=== PATIENT | female | born 1980 | race Caucasian/White ===

== ENCOUNTER 2016-12-26 22:26 | Inpatient (IN) | payer MEDICAID ==
[~2016-12-26 22:26] MED LIST: BACT800T5 PO; DEPA500T3 PO; HYDR50 PO; TRAZ100 PO; ZOLO50TA PO
--- NOTE | 2016-12-26 23:05 | PD ---
HPI Chief Complaint Contractions Date Seen: December 26, 2016 Time Seen: 23:00 Travel History International Travel<30 Days: No Contact w/Intl Traveler<30Days: No Known Affected Area: No History of Present Illness HPI Patient is a 36-year-old who is at 37 weeks gestation by an unsure due date of January 16. She saw Dr. sheehan by mouth for 2 visits but then never return for continued care she is not had an ultrasound in the past. Patient has had a previous section 2003 for a breech presentation. Para: 1 : 3 Miscarriage: 1 History Past Medical History Medical History: Denies Significant Hx Obstetric History Obstetric History section in 2003 LEEP D&C Family History Family History: Negative Social History Alcohol Use: No Tobacco Use: No Substance Abuse: No Allergies-Medications (Allergen,Severity, Reaction): Coded Allergies: Adhesives (Verified Allergy, Mild, 11/23/15) Home Meds Active Scripts Sulfamethoxazole-Trimethoprim DS (Bactrim DS)1 Tab Tab1 Tab PO BID #6 TAB Prov:Dayana Samson MD 11/24/15 Sulfamethoxazole-Trimethoprim DS (Bactrim DS)1 Tab Tab1 Tab PO BID 7 Days Prov:Rafael Marroquin MD 11/16/15 Reported Medications Hydroxyzine Pamoate (Vistaril)50 Mg Cap50 Mg PO Q6H PRN (ANXIETY) 05/21/13 Sertraline HCl (Zoloft)50 Mg [id number] Mg PO DAILY 05/20/13 Trazodone HCl 100 Mg [id number] Mg PO HS #45 TAB 05/20/13 Divalproex ER 500 mg (Depakote ER 500 mg)500 Mg [id number] Mg PO BID 05/12/13 Review of Systems Except as stated in HPI: all other systems reviewed are Neg Physical Exam Narrative GENERAL: Well-nourished, well-developed patient. SKIN: Warm and dry. HEAD: Normocephalic and atraumatic. EYES: No scleral icterus. No injection or drainage. ENT: No nasal drainage noted. Mucous membranes pink. Airway patent. NECK: Supple, trachea midline. No JVD. CARDIOVASCULAR: Regular rate and rhythm without murmurs, gallops, or rubs. RESPIRATORY: Breath sounds equal bilaterally. No accessory muscle use. BREASTS: Bilateral exam showed no masses , no retractions, no nipple discharge. ABDOMEN/GI: Abdomen soft, non-tender, bowel sounds present, no rebound, no guarding Gravid to [37-] weeks size Fundal Height: [-] GENITOURINARY: External Genitalia: intact and normal in appearance BUS glands: [-Normal] Cervix: [-] Dilatation: [8-] Effacement: [-80] Station: [-2] Presentation: [-Vertex] Membranes: [intact or ruptured] intact Uterine Contractions: [-] Every 5 minutes FHT's: Category: [1-] Baseline: [-140] Reactive: [Moderate-] Variability: [-] Moderate Decels: [-Absent] EXTREMITIES: No cyanosis or edema. BACK: Nontender without obvious deformity. No CVA tenderness. NEUROLOGICAL: Awake and alert. Motor and sensory grossly within normal limits. Five out of 5 muscle strength in all muscle groups. Normal speech. Data Data Vital Signs Reviewed: Yes MDM Plan 36-year-old previous section unknown incision type however it is most likely a low transverse as it was performed for a breech presentation at term Discussed with patient the pros and cons of repeat section versus vaginal delivery as she is a already 8 cm. Patient understands 1% risk of uterine rupture with a previous section Diagnosis Diagnosis: Primary Impression: 37 weeks gestation of Additional Impressions: No care in current Mother's group B Streptococcus colonization status unknown History of substance abuse Stephanie Benavides MD December 26, 2016 23:05
[2016-12-26] MEDS ORDERED: LACTATED RINGER'S 1000 ML INJ 1,000 ML IV PRN (23:07)
[2016-12-26] MEDS ORDERED: LACTATED RINGER'S 1000 ML INJ 1,000 ML IV SCH (23:07)
[2016-12-26] MEDS ORDERED: MINERAL OIL 10 ML VIAL TOPICAL PRN (23:15)
[2016-12-26] MEDS ORDERED: LIDOCAINE HCL 1% 50 ML VIAL I-DERMAL PRN (23:15)
[2016-12-26] MEDS ORDERED: SODIUM CHLORID 0.9% 500 ML INJ 500 ML IV PRN (23:15)
[2016-12-26] MEDS ORDERED: LIDOCAINE HCL 1% 50 ML VIAL INFIL PRN (23:15)
[2016-12-26] MEDS ORDERED: OXYTOCIN 30 UNITS-500ML PREMIX 500 ML IV ONE (23:15)
[2016-12-26] MEDS ORDERED: SODIUM CHLOR 0.9% 1000 ML INJ 1,000 ML IV PRN (23:27)
[2016-12-26 23:35] LABS: AUTOMATED NEUTROPHIL # 13.1 TH/MM3 (1.8-7.7); BASOPHIL # 0.1 TH/MM3 (0-0.2); BASOPHIL % 0.6 % (0.0-2.0); EOSINOPHIL # 0.2 TH/MM3 (0-0.4); EOSINOPHIL % 1.2 % (0.0-4.0); HEMATOCRIT 37.8 % (35.0-46.0); LYMPH % 14.7 % (9.0-44.0); LYMPHOCYTE # 2.4 TH/MM3 (1.0-4.8); MEAN CELL VOLUME 75.8 FL (80.0-100.0); MEAN CORPUSCULAR HEMOGLOBIN 24.8 PG (27.0-34.0); MEAN CORPUSCULAR HGB CONC 32.8 % (32.0-36.0); MONO % 4.8 % (0.0-8.0); NEUT % 78.7 % (16.0-70.0); PLATELET COUNT 193 TH/MM3 (150-450); RED BLOOD COUNT 4.99 MIL/MM3 (4.00-5.30); RED CELL DISTRIBUTION WIDTH 14.9 % (11.6-17.2); WHITE BLOOD COUNT 16.6 TH/MM3 (4.0-11.0)
[2016-12-26 23:37] LABS: HEMO FLAGS AUTO DIFF
[2016-12-26 23:45] VITALS: RESP 18
[2016-12-27] VITALS (162 sets, daily range): BP systolic 117–162; BP diastolic 66–98; PULSE 76–129; RESP 17–19; TEMP 97.8–98.5; O2SAT 91–100
[2016-12-27 00:08] LABS: PLATELET ESTIMATE SMEAR NORMAL (NORMAL); PLATELET MORPHOLOGY NORMAL (NORMAL); SCAN/DIFF AUTO DIFF CONFIRMED
[2016-12-27] MEDS ORDERED: fentaNYL 2MCG-BUPIV 0.125% INJ 100 ML ONE (00:08)
--- NOTE | 2016-12-27 02:34 | HHI.PR ---
MUD WORKER Note Note Patient s/p epidural. Cervix 8/c/-2, arom clear FHR 140, reactive, mod variability,category 1 tracing. Stephanie Benavides MD December 27, 2016 02:34
[2016-12-27 02:54] LABS: BACTERIA, URINE MOD /hpf; BLOOD, URINE MOD (NEG); COMMENT (UR) CULTURE INDICATED; CULTURE IF INDICATED CULTURE INDICATED; GLUCOSE,URINE NEG (NEG); KETONE, URINE NEG (NEG); MUCUS URINE FEW /lpf (OCC); NITRITE,URINE NEG (NEG); PH, URINE 7.5 (5.0-8.5); SQUAMOUS EPITHELIAL CELL URINE 2 /hpf (0-5); TRANSITIONAL EPI CELLS, URINE <1 /hpf; URIC ACID CRYSTALS, URINE FEW /hpf; URINE COLOR YELLOW (YELLW/STRAW)
[2016-12-27] MEDS ORDERED: ONDANSETRON HCL 4 MG/2 ML VIAL ONE ×2 (02:54→04:54)
[2016-12-27] MEDS: CITRIC ACID-SODIUM CITRATE LIQ 30 ML UDC PO SCH ×2 (03:13→03:58)
[2016-12-27] MEDS ORDERED: MAGNESIUM SULFATE 40 GM PREMIX 1,000 ML ONE (03:48)
--- NOTE | 2016-12-27 03:53 | PD.LABORPN ---
Subjective Subjective Patient complains of headache and pelvic pressure Objective Vital Signs Vital Signs Date Time Temp Pulse Resp B/P Pulse Ox O2 Delivery O2 Flow Rate FiO2 12/27/16 03:20 18 12/27/16 02:49 18 12/27/16 02:49 98.5 12/27/16 02:45 18 12/27/16 02:45 111 148/87 12/27/16 02:30 87 151/92 12/27/16 02:26 18 12/27/16 02:22 99 154/85 12/27/16 02:15 100 162/89 12/27/16 02:00 92 152/83 12/27/16 01:59 18 12/27/16 01:26 18 12/27/16 01:00 76 12/27/16 00:59 155/97 12/27/16 00:33 18 12/27/16 00:15 97.8 12/27/16 00:15 18 12/26/16 23:45 18 Objective Pelvic Exam: Cervix: [-] Dilatation: [9-] Effacement: [90-] Station: [-2-] Presentation: [Vertex-] Membranes: Ruptured Uterine Contractions: [-] Every 5 minutes FHT's: Category: [-1] Baseline: [140-] Reactive: [-Moderate] Variability: [Moderate-] Decels: [-Variable to 120] Assessment/Plan Assessment and Plan 36-year-old with increasing blood pressures and now with headache, suspect preeclampsia and will start patient on magnesium sulfate with a 4 g bolus and then 2 g an hour Failure to progress cervix is been unchanged over the past 3 hours in the patient with a prior history of a section plan to repeat section Stephanie Benavides MD December 27, 2016 03:53
[2016-12-27] MEDS ORDERED: ceFAZolin 2 GM PREMIX 50 ML IV SCH (04:00)
[2016-12-27] MEDS ORDERED: OXYTOCIN 10 UNIT/ML AMP ONE (04:10)
[2016-12-27] MEDS ORDERED: ceFAZolin INJ 1,000 MG VIAL ONE (04:11)
--- NOTE | 2016-12-27 04:53 | PD.OB.DELI ---
Procedure Note Section Procedure Pre Op Diagnosis: (1) History of substance abuse (2) 37 weeks gestation of (3) Mother's group B Streptococcus colonization status unknown (4) No care in current Post Op Diagnosis: Performed by Stephanie Benavides Procedure: Repeat Low Transverse Sec Indication for delivery: Desired elective repeat , Other (failure to descend) Confirmed correct: Patient, Procedure, Site, Time-out taken Anesthesia: Epidural Medication prior to procedure: Antacids, Antibiotics, IV Urinary catheter: Inserted using sterile technique Sterile preparation: Duraprep Position: Supine with wedge to left side Operative Features Skin Incision: Pfannenstiel Uterine Incision: Low transverse w/knife / blunt ext Membranes Ruptured: Previously Presentation: Occiput anterior Time of : 04:32 Delivery of : Uneventful : Female One Minute : 8 Five Minute : 9 Weight: 3150gms, 6#15oz Status of infant: Viable Placenta delivered: Intact Estimated blood loss: 600cc Procedure tolerated: Well Maternal Condition: Stable Condition: Stable Stephanie Benavides MD December 27, 2016 04:53
[2016-12-27] MEDS ORDERED: MORPHINE SULFATE PF 5 MG/10 ML VIAL ONE (04:54)
[2016-12-27] MEDS ORDERED: BENZOCAINE 20% TOPICAL SPRAY 60 ML CAN TOPICAL PRN (05:00)
[2016-12-27] MEDS ORDERED: ACETAMINOPHEN 325 MG TAB PO PRN (05:00)
[2016-12-27] MEDS ORDERED: WITCH HAZEL 50%/GLYCERIN 12.5% 40 PAD JAR TOPICAL PRN (05:00)
[2016-12-27] MEDS ORDERED: ALUMINUM/MAGNESIUM/SIMETH 30 ML CUP PO PRN (05:00)
[2016-12-27] MEDS ORDERED: SODIUM CHLORIDE 0.9% FLUSH 10 ML FLUSH IV FLUSH PRN (05:00)
[2016-12-27] MEDS ORDERED: ZOLPIDEM TARTRATE 5 MG TAB PO PRN (05:00)
[2016-12-27] MEDS ORDERED: ONDANSETRON ODT 4 MG TAB PO PRN (05:00)
[2016-12-27 06:21] LABS: BICARBONATE 22.5 MEQ/L (21.0-32.0); POTASSIUM 4.1 MEQ/L (3.5-5.1)
[2016-12-27 06:33] LABS: AMPHETAMINE, URINE POS (NEG); BARBITURATES, URINE NEG (NEG); COCAINE, URINE NEG (NEG)
[2016-12-27 06:34] LABS: RUBELLA IGG ANTIBODY GREATER THAN 500.0 IU/mL (10.0-500.0); RUBELLA STATUS IMMUNE (IMMUNE)
[2016-12-27] MEDS ORDERED: SODIUM CHLORIDE 0.9% FLUSH 10 ML FLUSH IV FLUSH SCH (09:00)
--- NOTE | 2016-12-27 09:02 | MP ---
cc: SIERRA NOWAK M.D. DATE OF SURGERY 12/27/2016 PREOPERATIVE DIAGNOSES 1. History of substance abuse. 2. 37 weeks gestation. 3. No care. 4. GBS unknown. 5. Previous section. 6. Failure to descend. POSTOPERATIVE DIAGNOSES 1. History of substance abuse. 2. 37 weeks gestation. 3. No care. 4. GBS unknown. 5. Previous section. 6. Failure to descend. PROCEDURE Repeat low transverse section without extension. ESTIMATED BLOOD LOSS 600 cc ANESTHETIC Epidural. MEDICATIONS Ancef given 2 grams preoperatively. DRAINS Lundy to gravity. COUNTS Correct x 3. FINDINGS 1. Normal uterus, tubes, ovaries. 2. Clear amniotic fluid. 3. Infant female, vertex presentation. Weight was 6 pounds, 15 ounces at 3150 grams, born at 04:32. Apgars were 8 and 9. DESCRIPTION OF PROCEDURE The patient was taken back to the operating room, prepped and draped in the usual sterile fashion, placed in dorsal supine position with a wedge to her left side. After adequate anesthetic was administered, a Pfannenstiel incision was made through her old scar and taken down to the fascia. The fascia was nicked in the midline and extended bilaterally, then taken off the rectus muscles. The muscles were divided in the midline. The anterior peritoneum was entered. The vesicouterine peritoneum was taken down and a transverse hysterotomy incision was made, bluntly extended bilaterally. The infant's head was delivered to the operative field, the rest of the body was delivered and handed off to the resuscitation team after a 45-second cord clamping delay. The placenta was delivered intact spontaneously and the endometrial cavity was curetted with a moistened laparotomy sponge. The hysterotomy incision was repaired using a running locking #1 chromic suture with good hemostasis at repair. The gutters were rendered free of all blood and clot material. The fascia was closed with a #1 PDS in a running fashion. The subcutaneous tissue was made hemostatic with a Bovie. The skin was closed with brodie. The patient tolerated the procedure well. She was taken back to the recovery room good condition. MD COOPER Quiroz/MILE /4:59 AM :54 AM
[2016-12-27 11:50] LABS: RAPID PLASMA REAGIN SCREEN NON-REACTIVE (NON-REACTVE)
[2016-12-27] MEDS ORDERED: DIPHTH/TETANUS/ACEL PERTUSSIS (BOOSTER) 0.5 ML VIAL/PFS IM ONE (16:00)
[2016-12-27] MEDS ORDERED: MEASLES, MUMPS, RUBELLA VACCINE 0.5 ML VIAL SQ ONE (16:00)
[2016-12-27] MEDS ORDERED: LACTATED RINGER'S 1000 ML INJ 1,000 ML IV SCH (18:45)
[2016-12-28] VITALS (15 sets, daily range): BP systolic 110–159; BP diastolic 50–94; PULSE 77–125; RESP 18–20; TEMP 98–99; O2SAT 100
[2016-12-28] MEDS ORDERED: MAGNESIUM SULFATE 40 GM PREMIX 1,000 ML ONE (02:33)
[2016-12-28] MEDS: IBUPROFEN 600 MG TAB PO PRN ×3 (08:52→23:49)
[2016-12-28] MEDS: DOCUSATE SODIUM 50 MG/SENNA 8.6 MG TAB PO PRN ×2 (08:52→21:07)
--- NOTE | 2016-12-28 09:07 | HHI.OB ---
Subjective Post Operative Day: 1 Remarks Postoperative day number 1. AFVSS overnight. Pain well-controlled. Incision not draining. Decreased lochia. Denies dysuria. No breast tenderness. Appetite good. No nausea or vomiting. Endorses flatus. No bowel movement. Ambulating well. Denies calf pain, shortness of breath, or cough. Otherwise, she is doing well this morning and has no other complaints. Objective Vitals/I&O Vital Signs Date Time Temp Pulse Resp B/P Pulse Ox O2 Delivery O2 Flow Rate FiO2 12/28/16 08:35 20 12/28/16 08:35 98.2 12/28/16 08:00 81 125/73 12/28/16 07:00 77 110/54 12/28/16 06:00 82 119/70 12/28/16 05:00 82 112/50 12/28/16 04:00 98.0 86 131/71 12/28/16 04:00 18 12/28/16 03:00 95 128/68 12/28/16 02:00 98 129/76 12/28/16 01:00 102 145/70 12/28/16 00:00 98.2 18 12/28/16 00:00 104 132/70 12/27/16 23:00 96 140/74 12/27/16 22:00 108 139/76 12/27/16 21:30 114 100 12/27/16 21:20 117 100 12/27/16 21:15 121 99 12/27/16 21:10 101 99 12/27/16 21:05 106 100 12/27/16 21:00 107 12/27/16 21:00 109 146/81 99 12/27/16 20:55 115 100 12/27/16 20:50 118 100 12/27/16 20:45 122 100 12/27/16 20:40 113 100 12/27/16 20:35 114 100 12/27/16 20:30 104 100 12/27/16 20:25 112 100 12/27/16 20:20 109 100 12/27/16 20:15 104 100 12/27/16 20:10 114 100 12/27/16 20:05 120 100 12/27/16 20:00 123 12/27/16 20:00 118 155/74 100 12/27/16 19:55 109 100 12/27/16 19:50 95 100 17 19:45 97 100 17 19:40 98 100 17 19:35 95 100 17 19:30 96 100 12/27/16 19:25 95 99 17 19:20 96 98 12/27/16 19:15 93 98 12/27/16 19:10 94 98 12/27/16 19:05 97 98 12/27/16 19:00 115 12/27/16 19:00 106 138/84 100 12/27/16 18:59 18 12/27/16 18:55 98 99 17 18:50 95 99 12/27/16 18:45 94 99 12/27/16 18:40 96 98 12/27/16 18:30 104 98 12/27/16 18:10 98 98 12/27/16 18:05 97 99 12/27/16 18:00 99 139/77 100 12/27/16 18:00 19 12/27/16 18:00 105 12/27/16 17:55 108 99 17 17:50 96 98 17 17:45 103 99 17 17:40 104 12/27/16 17:40 98 17 17:35 115 99 12/27/16 17:30 112 99 17 17:25 111 98 17 17:20 96 98 17 17:15 91 98 12/27/16 17:10 110 99 17 17:05 114 98 17 17:00 112 127/70 99 17 17:00 114 12/27/16 16:53 18 17 16:50 90 98 17 16:00 97 121/70 17 15:10 121 98 17 15:05 95 97 12/27/16 15:00 110 17 15:00 108 117/79 98 17 14:55 106 97 17 14:54 17 12/27/16 14:50 95 97 17 14:45 95 97 17 14:40 92 97 5/4/17 14:35 90 97 17 14:30 105 98 17 14:25 92 97 12/27/16 14:20 91 97 17 14:15 91 97 12/27/16 14:10 90 97 17 14:05 110 98 17 14:00 90 122/66 97 17 14:00 89 12/27/16 13:41 18 17 13:41 18 17 13:40 96 17 13:40 97 17 13:40 97 17 13:40 96 17 13:35 97 17 13:35 90 17 13:35 90 12/27/16 13:35 97 17 13:30 95 17 13:30 92 130/78 17 13:30 95 17 13:30 97 17 13:30 130/78 17 13:30 97 17 13:25 94 97 17 13:25 94 97 17 13:20 93 98 17 13:20 93 98 17 13:15 94 98 12/27/16 13:15 94 98 12/27/16 13:10 95 99 17 13:10 95 99 17 13:05 89 98 17 13:05 89 98 17 13:00 89 137/76 99 17 13:00 94 17 13:00 89 137/76 99 17 13:00 94 17 12:55 91 98 12/27/17 12:55 91 98 17 12:50 90 98 17 12:50 90 98 17 12:45 90 97 17 12:45 90 97 12/27/17 12:40 93 98 17 12:40 93 98 17 12:35 93 98 17 12:35 93 98 17 12:30 93 124/73 98 17 12:30 93 124/73 98 12/27/16 12:30 92 12/27/16 12:27 19 12/27/16 12:20 102 97 12/27/16 12:15 100 91 12/27/16 12:05 112 98 12/27/16 12:00 98 12/27/16 12:00 95 136/68 96 12/27/16 11:55 95 96 12/27/16 11:50 97 97 12/27/16 11:45 114 98 12/27/16 11:40 97 97 12/27/16 11:35 99 97 12/27/16 11:30 104 144/77 97 12/27/16 11:30 108 12/27/16 11:25 103 96 12/27/16 11:20 99 96 12/27/16 11:15 18 12/27/16 11:15 106 97 12/27/16 11:10 99 96 12/27/16 11:05 98 96 12/27/16 11:00 18 12/27/16 11:00 98 12/27/16 11:00 103 139/76 96 12/27/16 10:55 104 97 12/27/16 10:50 98 96 12/27/16 10:45 100 96 12/27/16 10:40 100 96 12/27/16 10:35 115 98 12/27/16 10:30 102 139/74 12/27/16 10:00 100 152/77 12/27/16 09:30 98 153/76 12/27/16 09:15 129 99 12/27/16 09:10 79 91 12/27/16 09:05 100 100 Result Diagram: 12/26/16 2320 12/27/16 0530 Objective Remarks GENERAL: Well-nourished, well-developed patient. CARDIOVASCULAR: Regular rate and rhythm without murmurs, gallops, or rubs. RESPIRATORY: Breath sounds equal bilaterally. No accessory muscle use. ABDOMEN/GI: Abdomen soft, non-tender, bowel sounds present. Incision: Clean, dry and intact. Fundus: Firm, non-tender at umbilicus. GENITOURINARY: Light to moderate bleeding. EXTREMITIES: No cyanosis or edema, non-tender, without signs of DVT. Medications and IVs Current Medications Medications (Trade) Dose Ordered Sig/Olman Route Start Time Stop Time Status Last Admin (NS Flush) 2 ml UNSCH PRN IV FLUSH 12/27/16 05:00 12/28/16 08:51 (Tylenol) 650 mg Q4H PRN PO 12/27/16 05:00 (Motrin) 600 mg Q6H PRN PO 12/27/16 05:00 12/28/16 08:52 (Americaine 20% Top Spr) 1 spray Q4H PRN TOPICAL 12/27/16 05:00 (Tucks Pads) 1 applic QID PRN TOPICAL 12/27/16 05:00 12/27/16 16:27 (Bernadette-Colace) 2 tab Q12H PRN PO 12/27/16 05:00 12/28/16 08:52 (Ambien) 5 mg HS PRN PO 12/27/16 05:00 (Mag-Al Plus Susp Liq) 15 ml Q8H PRN PO 12/27/16 05:00 Ondansetron HCl 4 mg 4 mg Q6H PRN PO 12/27/16 05:00 (Lr 1000 ml Inj) 1,000 ml @ 75 mls/hr [id number] IV 12/27/16 18:45 12/27/16 18:57 Assessment/Plan Assessment and Plan 36y/o female who is POD#1 s/p CXN. -Continue routine care. -Percocet and Motrin PRN pain. -Encouraged OOB. Advised pelvic rest for 6 wks. Will need a f/u appt. in 1 wk for incision check. -Re: ctrl, she is undecided -D/c in 1-2 more days. dw OB attending Brandon Collado MD R1 December 28, 2016 09:07
[2016-12-28] MEDS ORDERED: oxyCODONE/ACETAMINOPHEN 5 MG/325 MG TAB PO PRN (12:15)
[2016-12-28] MEDS: oxyCODONE/ACETAMINOPHEN 5 MG/325 MG TAB PO PRN ×3 (12:33→21:07)
[2016-12-28] MEDS: NIFEdipine 10 MG CAP PO SCH ×2 (16:05→22:04)
[2016-12-29] MEDS: oxyCODONE/ACETAMINOPHEN 5 MG/325 MG TAB PO PRN (02:28)
[2016-12-29 03:20] VITALS: BP 136/79; PULSE 106; RESP 18; TEMP 98.1
[2016-12-29] MEDS: IBUPROFEN 600 MG TAB PO PRN (05:59)
[2016-12-29] MEDS: NIFEdipine 10 MG CAP PO SCH (05:59)
[2016-12-29 08:40] VITALS: BP 147/79; PULSE 97; RESP 20; TEMP 98.3
[2016-12-29] MEDS ORDERED: CEPHALEXIN MONOHYDRATE 500 MG CAP PO SCH (09:00)
--- NOTE | 2016-12-29 09:07 | HHI.OB ---
Subjective Post Operative Day: 2 Remarks 36 yo who is POD 2 from CS 12/27 at 0432.Patient with improved BP overnight; SBP in 130's. Pain well-controlled. Decreased lochia. Denies dysuria. No breast tenderness. Appetite good. Patient passing gas normally. Ambulating well. No shortness of breath or leg swelling. Patient states that she still needs to establish follow-up at this time for post- care. (Laron Rivero MD R2) Objective Vitals/I&O Vital Signs Date Time Temp Pulse Resp B/P Pulse Ox O2 Delivery O2 Flow Rate FiO2 12/29/16 03:20 98.1 106 18 136/79 12/28/16 23:50 98.1 12/28/16 23:50 106 18 157/89 12/28/16 20:00 92 148/85 12/28/16 20:00 98.5 18 100 12/28/16 17:14 103 20 155/94 12/28/16 15:18 99.0 125 18 159/87 12/28/16 12:13 98.5 115 18 140/90 (Laron Rivero MD R2) Result Diagram: 12/26/16 2320 12/27/16 0530 Objective Remarks GENERAL: Well-nourished, well-developed patient. CARDIOVASCULAR: Regular rate and rhythm without murmurs, gallops, or rubs. RESPIRATORY: Breath sounds equal bilaterally. No accessory muscle use. ABDOMEN/GI: Abdomen soft, non-tender, bowel sounds present. Incision: No concerns for drainage or infection Fundus: Firm, non-tender at umbilicus. GENITOURINARY: Light to moderate bleeding. EXTREMITIES: No cyanosis or edema, non-tender, without signs of DVT. Medications and IVs Current Medications Medications (Trade) Dose Ordered Sig/Olman Route Start Time Stop Time Status Last Admin (NS Flush) 2 ml UNSCH PRN IV FLUSH 12/27/16 05:00 12/28/16 08:51 (Tylenol) 650 mg Q4H PRN PO 12/27/16 05:00 (Motrin) 600 mg Q6H PRN PO 12/27/16 05:00 12/29/16 05:59 (Americaine 20% Top Spr) 1 spray Q4H PRN TOPICAL 12/27/16 05:00 (Tucks Pads) 1 applic QID PRN TOPICAL 12/27/16 05:00 12/27/16 16:27 (Bernadette-Colace) 2 tab Q12H PRN PO 12/27/16 05:00 12/28/16 21:07 (Ambien) 5 mg HS PRN PO 12/27/16 05:00 (Mag-Al Plus Susp Liq) 15 ml Q8H PRN PO 12/27/16 05:00 12/29/16 02:30 Ondansetron HCl 4 mg 4 mg Q6H PRN PO 12/27/16 05:00 (Lr 1000 ml Inj) 1,000 ml @ 75 mls/hr [id number] IV 12/27/16 18:45 12/27/16 18:57 (Percocet 5-325 Mg) 1 tab Q4H PRN PO 12/28/16 12:15 (Percocet 5-325 Mg) 2 tab Q4H PRN PO 12/28/16 12:15 12/29/16 02:28 (Procardia) 10 mg Q8HR PO 12/28/16 16:00 12/29/16 05:59 (Keflex) 500 mg BID PO 12/29/16 09:00 (Laron Rivero MD R2) Assessment/Plan Assessment and Plan 36y/o female who is POD#2 s/p CXN. -Continue routine care. -Percocet and Motrin PRN pain. -Encouraged OOB. Advised pelvic rest for 6 wks. Will need a f/u appt. in 1 wk for incision check. -Re: ctrl, she is undecided -D/c today UTI Impression: Gram - shayy on urine culture -Will treat with Macrobid 100mg BID Maternal substance abuse -DCF notified (Laron Rivero MD R2) Collaborating MD Comments Agree with management plan for discharge. (Stephanie Benavides MD) Laron Rivero MD R2 December 29, 2016 09:07 Stephanie Benavides MD December 29, 2016 09:20
--- NOTE | 2016-12-29 09:08 | HHI.DCPOC ---
Discharge Care Plan Diagnosis: (1) care following delivery Report Symptoms to Your Doctor -Temperate above 100.5 degrees -Redness, of incision or excessive or foul smelling drainage -Unusual pain or calf pain -Increased vaginal bleeding -Painful or difficulty urinating -Feelings of extreme sadness or anxiety after 2 weeks Goals to Promote Your Health * To prevent worsening of your condition and complications * To maintain your health at the optimal level Directions to Meet Your Goals Take your medications as prescribed Follow your dietary instruction Follow activity as directed Ensure plenty of rest for recovery Drink fluids for hydration Keep your appointments as scheduled Take your immunizations and boosters as scheduled If your symptoms worsen call your PCP, if no PCP go to Urgent Care Center or Emergency Room Smoking is Dangerous to Your Health. Avoid second hand smoke Call the 24-hour crisis hotline for domestic abuse at Laron Rivero MD R2 December 29, 2016 09:08
[2016-12-29] MEDS ORDERED: NITR1CAP36 PO (09:11)
[2016-12-29] MEDS ORDERED: NIFE10 PO (09:11)
[2016-12-29] MEDS ORDERED: IBUP-232 PO (09:11)
[2016-12-29] MEDS ORDERED: SENN1TAB PO (09:11)
[2016-12-29] MEDS ORDERED: OXYC1TAB63 PO (09:11)
== END 2016-12-29 13:18 | disposition home or self-care (01) | DRG 765 ==
LOC: HOBED 22:26 → H2EB 23:14 → H2EA 12-27 05:51 → H1EA 12-28 11:56
PROVIDERS: ADMIT Obstetrics & Gynecology Obstetrics; ATTEND Obstetrics & Gynecology Obstetrics
PROC: 10D00Z1 Extraction of Products of Conception, Low, Open Approach (ICD-10-PCS; principal; 2016-12-27)
DX: O34.211 Maternal care for low transverse scar from previous cesarean delivery (principal); O75.3 Other infection during labor; Z37.0 Single live birth; Z3A.37 37 weeks gestation of pregnancy; B96.20 Unspecified Escherichia coli [E. coli] as the cause of diseases classified elsewhere; O14.94 Unspecified pre-eclampsia, complicating childbirth; O32.4XX0 Maternal care for high head at term, not applicable or unspecified
CPT/HCPCS: 59025; 80048; 80074; 80307; 81001; 85025; 86592; 86703; 86762; 86850; 86900; 86901; 87077; 87086; 87186; 90715; 99285; J0690; J2274; J2405; J2590; J3475; J7120

== ENCOUNTER → 2017-12-09 | Outpatient (CLI) | payer MEDICAID ==
[~2017-12-09] MED LIST changes: -BACT800T5 PO; +IBUP-232 PO; +NIFE10 PO; +NITR1CAP36 PO; +OXYC1TAB63 PO; +SENN1TAB PO
== END ==
LOC: HPND 11:08
PROVIDERS: ATTEND Obstetrics & Gynecology
DX: O34.211 Maternal care for low transverse scar from previous cesarean delivery (principal); O98.513 Other viral diseases complicating pregnancy, third trimester; O09.523 Supervision of elderly multigravida, third trimester; O99.333 Smoking (tobacco) complicating pregnancy, third trimester
CPT/HCPCS: 76811

== ENCOUNTER 2017-12-28 19:35 | Inpatient (IN) | payer MEDICAID ==
[~2017-12-28] VITALS: Ht 152.4 cm; Wt 79.0 kg
[2017-12-28] VITALS (53 sets, daily range): BP systolic 129–180; BP diastolic 50–103; PULSE 85–122; RESP 15; TEMP 98.1; O2SAT 97–100
[2017-12-28] MEDS ORDERED: LACTATED RINGER'S 1000 ML INJ 1,000 ML IV PRN (20:08)
[2017-12-28] MEDS: LACTATED RINGER'S 1000 ML INJ 1,000 ML IV SCH ×2 (20:13→21:37)
[2017-12-28] MEDS ORDERED: SODIUM CHLORID 0.9% 500 ML INJ 500 ML IV PRN (20:15)
[2017-12-28] MEDS ORDERED: LIDOCAINE HCL 1% 50 ML VIAL I-DERMAL PRN (20:15)
[2017-12-28] MEDS ORDERED: OXYTOCIN 30 UNITS-500ML PREMIX 500 ML IV ONE (20:15)
[2017-12-28] MEDS ORDERED: ONDANSETRON HCL 4 MG/2 ML VIAL IV PUSH PRN (20:15)
[2017-12-28] MEDS ORDERED: MINERAL OIL 10 ML VIAL TOPICAL PRN (20:15)
[2017-12-28] MEDS ORDERED: LIDOCAINE HCL 1% 50 ML VIAL INFIL PRN (20:15)
[2017-12-28] MEDS ORDERED: CITRIC ACID-SODIUM CITRATE LIQ 30 ML UDC PO SCH (20:15)
[2017-12-28] MEDS ORDERED: SODIUM CHLOR 0.9% 1000 ML INJ 1,000 ML IV PRN (20:28)
--- NOTE | 2017-12-28 20:30 | PD ---
HPI Chief Complaint Contractions Date Seen: December 28, 2017 Time Seen: 20:19 Travel History International Travel<30 Days: No Contact w/Intl Traveler<30Days: No Known Affected Area: No History of Present Illness HPI 37-year-old 4 para 2 AB 1 at 38+ weeks gestation based on 32 week ultrasound who presents with contractions. She is uncertain of her water is broken. She reports some bloody vaginal mucus. Her cervix on arrival was 8 cm dilated 100% effaced -2 station. The patient desires a if possible. She has had 2 prior C-sections. The first was for breech the second was 1 year ago for arrest of active labor at 8 cm. I reviewed with the patient the risks benefits and alternatives to trial of labor after 2 C-sections especially emphasizing the increased risk of uterine rupture and she desires trial of labor. Para: 2 : 4 Miscarriage: 1 : 0 History Past Medical History Narrative Medical History of substance abuse but the patient denies any use during this . History of hepatitis C. Obstetric History Obstetric History Her first she had a for breech Second was a miscarriage with D&C in the first trimester Third was a term trial of labor which arrested at 8 cm dilation and subsequently was her second She has had very limited care with this . She had an ultrasound at 32 weeks which established her EDC. She has had no labs. Past Surgical History Narrative Surgical D&C, 2 C-sections Family History Family History: Negative Social History Alcohol Use: No Tobacco Use: Yes (10 cigarettes per day) Substance Abuse: Yes (History of opiate and amphetamine abuse) Allergies-Medications (Allergen,Severity, Reaction): Coded Allergies: adhesive (Unverified Allergy, Mild, 04/09/17) Home Meds Active Scripts Nitrofurantoin Macrocrystal (Nitrofurantoin Macrocrystal) 100 Mg Cap, 100 MG PO BID for Infection, #14 CAP 0 Refills Prov:Laron Rivero MD R3 12/29/16 Nifedipine (Procardia) 10 Mg Cap, 10 MG PO Q8HR, #60 CAP Prov:Laron Rivero MD R3 12/29/16 Sennosides-Docusate Sodium (Senna Plus 8.6-50 mg) 1 Tab Tab, 2 TAB PO Q12H Y for CONSTIPATION, #30 TAB Prov:Laron Rivero MD R3 12/29/16 Oxycodone-Acetaminophen (Oxycodone-Acetaminophen) 5-325 mg Tab, 1 TAB PO Q4H Y for PAIN SCALE 3 TO 5, #20 TAB Prov:Laron Rivero MD R3 12/29/16 Ibuprofen (Ibuprofen) 600 Mg Tab, 600 MG PO Q6H Y for CRAMPING, #30 TAB Prov:Laron Rivero MD R3 12/29/16 Reported Medications Hydroxyzine Pamoate (Vistaril) 50 Mg Cap, 50 MG PO Q6H Y for ANXIETY, CAP 05/21/13 Sertraline HCl (Zoloft) 50 Mg Tab, 150 MG PO DAILY, TAB 05/20/13 Trazodone HCl (Trazodone HCl) 100 Mg Tab, 150 MG PO HS, #45 TAB 05/20/13 Divalproex ER 500 mg (Depakote ER 500 mg) 500 Mg Tab, 500 MG PO BID, TAB 05/12/13 Review of Systems Except as stated in HPI: all other systems reviewed are Neg Physical Exam Narrative GENERAL: Well-nourished, well-developed patient. Poor dentition SKIN: Warm and dry. HEAD: Normocephalic and atraumatic. EYES: No scleral icterus. No injection or drainage. ENT: No nasal drainage noted. Mucous membranes pink. Airway patent. NECK: Supple, trachea midline. No JVD. CARDIOVASCULAR: Regular rate and rhythm without murmurs, gallops, or rubs. RESPIRATORY: Breath sounds equal bilaterally. No accessory muscle use. ABDOMEN/GI: Abdomen soft, non-tender, bowel sounds present, no rebound, no guarding Gravid to [-] weeks size Fundal Height: [35-] GENITOURINARY: External Genitalia: intact and normal in appearance BUS glands: [Bloody show-] Cervix: [-] Dilatation: [-8] Effacement: [100] Station: [-2-] Presentation: [-Vertex] Membranes: [intact ] Uterine Contractions: [Every 2-3-] FHT's: Category: [1-] Baseline: [-] Reactive: [Yes-] Variability: [Moderate-] Decels: [-No] EXTREMITIES: No cyanosis or edema. BACK: Nontender without obvious deformity. No CVA tenderness. NEUROLOGICAL: Awake and alert. Motor and sensory grossly within normal limits. Five out of 5 muscle strength in all muscle groups. Normal speech. Data Data Vital Signs Reviewed: Yes Orders Orders Ob (2e) Additional Admit Info (12/28/17 19:57) Admit To Inpatient (12/28/17 ) Code Status (12/28/17 20:08) Vital Signs (Adult) .Per protocol (12/28/17 20:08) Heart (12/28/17 20:08) Amnioinfusion (12/28/17 20:08) Urinary Catheter Management .ONCE (12/28/17 20:08) Diet Npo (12/29/17 Breakfast) Lactated Ringer's 1000 Ml Inj (Lr 1000 M (12/28/17 20:08) Lactated Ringer's 1000 Ml Inj (Lr 1000 M (12/28/17 20:08) Sodium Chlorid 0.9% 500 Ml Inj (Ns 500 M (12/28/17 20:15) Sodium Chlor 0.9% 1000 Ml Inj (Ns 1000 M (12/28/17 20:28) Lidocaine 1% Inj (50 Ml) (Xylocaine 1% I (12/28/17 20:15) Citric Acid-Sodium Citrate Liq (Bicitra (12/28/17 20:15) Ondansetron Inj (Zofran Inj) (12/28/17 20:15) Fentanyl Inj (Fentanyl Inj) (12/28/17 20:15) Fentanyl Inj (Fentanyl Inj) (12/28/17 20:15) Complete Blood Count With Diff (12/28/17 20:08) Hold Clot (12/28/17 20:08) Abo/Rh Blood Type (12/28/17 20:08) Urinalysis - C+S If Indicated (12/28/17 20:08) Drug Screen, Random Urine (12/28/17 20:08) Type And Screen (12/28/17 20:08) Rapid Plasma Regin (Rpr) W Ttr (12/28/17 20:08) Hepatitis Profile (12/28/17 20:08) No Care Spec Serology (12/28/17 20:08) Resp Oxygen Non Rebreathe Mask (12/28/17 ) ^ Epidural / Intrathecal Infus (12/28/17 20:08) Oxytocin 30 Units-500ml Premix (Pitocin (12/28/17 20:15) Lidocaine 1% Inj (50 Ml) (Xylocaine 1% I (12/28/17 20:15) Light Mineral Oil (Muri-Lube Oil) (12/28/17 20:15) Inpatient Certification (12/28/17 ) Gc And Chlamydia Pcr (12/28/17 20:15) Group B Strep Pcr (Rapid) (12/28/17 20:18) Group B Strep Pcr (Rapid) (12/28/17 20:18) MDM Medical Record Reviewed: Yes Narrative Course / MDM Assessment: 37-year-old multiparous female with 2 prior C-sections now in active labor and desiring trial of labor, #2 Limited care with dating by 32 week ultrasound, #3 history of polysubstance abuse, history of hepatitis C , #4 unknown GBS status Plan: labs, admit for labor management, Condition: Good Chauncey Rodriguez MD December 28, 2017 20:30
--- NOTE | 2017-12-28 20:35 | HHI.HP ---
History & Physical H&P Patient Name: Lisa Mcdonald Unit Number: [id number] Date of : 1980 Patient Status: Registered Emergency Room Attending Doctor: Chauncey Rodriguez MD HPI HPI Chief Complaint Contractions Date Seen: December 28, 2017 Time Seen: 20:19 Travel History International Travel<30 Days: No Contact w/Intl Traveler<30Days: No Known Affected Area: No History of Present Illness HPI 37-year-old 4 para 2 AB 1 at 38+ weeks gestation based on 32 week ultrasound who presents with contractions. She is uncertain of her water is broken. She reports some bloody vaginal mucus. Her cervix on arrival was 8 cm dilated 100% effaced -2 station. The patient desires a if possible. She has had 2 prior C-sections. The first was for breech the second was 1 year ago for arrest of active labor at 8 cm. I reviewed with the patient the risks benefits and alternatives to trial of labor after 2 C-sections especially emphasizing the increased risk of uterine rupture and she desires trial of labor. Para: 2 : 4 Miscarriage: 1 : 0 History (Limited) History Past Medical History Narrative Medical History of substance abuse but the patient denies any use during this . History of hepatitis C. Obstetric History Obstetric History Her first she had a for breech Second was a miscarriage with D&C in the first trimester Third was a term trial of labor which arrested at 8 cm dilation and subsequently was her second She has had very limited care with this . She had an ultrasound at 32 weeks which established her EDC. She has had no labs. Past Surgical History Narrative Surgical D&C, 2 C-sections Family History Family History: Negative Social History Alcohol Use: No Tobacco Use: Yes (10 cigarettes per day) Substance Abuse: Yes (History of opiate and amphetamine abuse) Allergies-Medications Allergies-Medications (Allergen,Severity, Reaction): Coded Allergies: adhesive (Unverified Allergy, Mild, 04/09/17) Home Meds Active Scripts Nitrofurantoin Macrocrystal (Nitrofurantoin Macrocrystal) 100 Mg Cap, 100 MG PO BID for Infection, #14 CAP 0 Refills Prov:Larno Rivero MD R3 12/29/16 Nifedipine (Procardia) 10 Mg Cap, 10 MG PO Q8HR, #60 CAP Prov:Laron Rivero MD R3 12/29/16 Sennosides-Docusate Sodium (Senna Plus 8.6-50 mg) 1 Tab Tab, 2 TAB PO Q12H Y for CONSTIPATION, #30 TAB Prov:Laron Rivero MD R3 12/29/16 Oxycodone-Acetaminophen (Oxycodone-Acetaminophen) 5-325 mg Tab, 1 TAB PO Q4H Y for PAIN SCALE 3 TO 5, #20 TAB Prov:Laron Rivero MD R3 12/29/16 Ibuprofen (Ibuprofen) 600 Mg Tab, 600 MG PO Q6H Y for CRAMPING, #30 TAB Prov:Laron Rivero MD R3 12/29/16 Reported Medications Hydroxyzine Pamoate (Vistaril) 50 Mg Cap, 50 MG PO Q6H Y for ANXIETY, CAP 05/21/13 Sertraline HCl (Zoloft) 50 Mg Tab, 150 MG PO DAILY, TAB 05/20/13 Trazodone HCl (Trazodone HCl) 100 Mg Tab, 150 MG PO HS, #45 TAB 05/20/13 Divalproex ER 500 mg (Depakote ER 500 mg) 500 Mg Tab, 500 MG PO BID, TAB 05/12/13 ROS Review of Systems Except as stated in HPI: all other systems reviewed are Neg Physical Exam Physical Exam Narrative GENERAL: Well-nourished, well-developed patient. Poor dentition SKIN: Warm and dry. HEAD: Normocephalic and atraumatic. EYES: No scleral icterus. No injection or drainage. ENT: No nasal drainage noted. Mucous membranes pink. Airway patent. NECK: Supple, trachea midline. No JVD. CARDIOVASCULAR: Regular rate and rhythm without murmurs, gallops, or rubs. RESPIRATORY: Breath sounds equal bilaterally. No accessory muscle use. ABDOMEN/GI: Abdomen soft, non-tender, bowel sounds present, no rebound, no guarding Gravid to [-] weeks size Fundal Height: [35-] GENITOURINARY: External Genitalia: intact and normal in appearance BUS glands: [Bloody show-] Cervix: [-] Dilatation: [-8] Effacement: [100] Station: [-2-] Presentation: [-Vertex] Membranes: [intact ] Uterine Contractions: [Every 2-3-] FHT's: Category: [1-] Baseline: [-] Reactive: [Yes-] Variability: [Moderate-] Decels: [-No] EXTREMITIES: No cyanosis or edema. BACK: Nontender without obvious deformity. No CVA tenderness. NEUROLOGICAL: Awake and alert. Motor and sensory grossly within normal limits. Five out of 5 muscle strength in all muscle groups. Normal speech. Data Data Data Vital Signs Reviewed: Yes Orders Orders Ob (2e) Additional Admit Info (12/28/17 19:57) Admit To Inpatient (12/28/17 ) Code Status (12/28/17 20:08) Vital Signs (Adult) .Per protocol (12/28/17 20:08) Heart (12/28/17 20:08) Amnioinfusion (12/28/17 20:08) Urinary Catheter Management .ONCE (12/28/17 20:08) Diet Npo (12/29/17 Breakfast) Lactated Ringer's 1000 Ml Inj (Lr 1000 M (12/28/17 20:08) Lactated Ringer's 1000 Ml Inj (Lr 1000 M (12/28/17 20:08) Sodium Chlorid 0.9% 500 Ml Inj (Ns 500 M (12/28/17 20:15) Sodium Chlor 0.9% 1000 Ml Inj (Ns 1000 M (12/28/17 20:28) Lidocaine 1% Inj (50 Ml) (Xylocaine 1% I (12/28/17 20:15) Citric Acid-Sodium Citrate Liq (Bicitra (12/28/17 20:15) Ondansetron Inj (Zofran Inj) (12/28/17 20:15) Fentanyl Inj (Fentanyl Inj) (12/28/17 20:15) Fentanyl Inj (Fentanyl Inj) (12/28/17 20:15) Complete Blood Count With Diff (12/28/17 20:08) Hold Clot (12/28/17 20:08) Abo/Rh Blood Type (12/28/17 20:08) Urinalysis - C+S If Indicated (12/28/17 20:08) Drug Screen, Random Urine (12/28/17 20:08) Type And Screen (12/28/17 20:08) Rapid Plasma Regin (Rpr) W Ttr (12/28/17 20:08) Hepatitis Profile (12/28/17 20:08) No Care Spec Serology (12/28/17 20:08) Resp Oxygen Non Rebreathe Mask (12/28/17 ) ^ Epidural / Intrathecal Infus (12/28/17 20:08) Oxytocin 30 Units-500ml Premix (Pitocin (12/28/17 20:15) Lidocaine 1% Inj (50 Ml) (Xylocaine 1% I (12/28/17 20:15) Light Mineral Oil (Muri-Lube Oil) (12/28/17 20:15) Inpatient Certification (12/28/17 ) Gc And Chlamydia Pcr (12/28/17 20:15) Group B Strep Pcr (Rapid) (12/28/17 20:18) Group B Strep Pcr (Rapid) (12/28/17 20:18) MDM MDM Medical Record Reviewed: Yes Narrative Course / MDM Assessment: 37-year-old multiparous female with 2 prior C-sections now in active labor and desiring trial of labor, #2 Limited care with dating by 32 week ultrasound, #3 history of polysubstance abuse, history of hepatitis C , #4 unknown GBS status Plan: labs, admit for labor management, Condition: Good Chauncey Rodriguez MD December 28, 2017 20:30 Chauncey Rodriguez MD December 28, 2017 20:35
[2017-12-28 20:49] LABS: AUTOMATED NEUTROPHIL # 12.4 TH/MM3 (1.8-7.7); BASOPHIL # 0.1 TH/MM3 (0-0.2); BASOPHIL % 0.5 % (0.0-2.0); EOSINOPHIL # 0.2 TH/MM3 (0-0.4); EOSINOPHIL % 1.4 % (0.0-4.0); HEMATOCRIT 39.1 % (35.0-46.0); HEMOGLOBIN 12.8 GM/DL (11.6-15.3); LYMPH % 13.3 % (9.0-44.0); MEAN CELL VOLUME 74.9 FL (80.0-100.0); MEAN CORPUSCULAR HEMOGLOBIN 24.6 PG (27.0-34.0); MEAN CORPUSCULAR HGB CONC 32.8 % (32.0-36.0); MEAN PLATELET VOLUME 9.2 FL (7.0-11.0); MONO % 4.8 % (0.0-8.0); MONOCYTE # 0.7 TH/MM3 (0-0.9); PLATELET COUNT 225 TH/MM3 (150-450); RED BLOOD COUNT 5.22 MIL/MM3 (4.00-5.30); RED CELL DISTRIBUTION WIDTH 15.1 % (11.6-17.2); WHITE BLOOD COUNT 15.5 TH/MM3 (4.0-11.0)
[2017-12-28] MEDS ORDERED: ePHEDrine/NS 25 MG/5 ML SYRINGE ONE (20:50)
[2017-12-28] MEDS ORDERED: fentaNYL 2MCG-BUPIV 0.125% INJ 100 ML ONE (20:50)
[2017-12-28] MEDS ORDERED: LIDOCAINE 2%/EPINEPHrine PF 1:200,000 20ML SDV ONE (20:54)
[2017-12-28] MEDS ORDERED: PRENTAB7 PO (21:01)
[2017-12-28] MEDS ORDERED: TUMS500C CHEW (21:02)
[2017-12-28] MEDS ORDERED: ePHEDrine/NS 25 MG/5 ML SYRINGE IV PUSH PRN (21:30)
[2017-12-28] MEDS ORDERED: NO SYSTEM NARCOTICS PRN (21:30)
[2017-12-28] MEDS ORDERED: DO NOT ADMINISTER ANTICOAGULANTS PRN (21:30)
[2017-12-28] MEDS ORDERED: fentaNYL 2MCG-BUPIV 0.125% 100 ML EPIDURAL PRN (21:30)
[2017-12-28 23:25] LABS: BILIRUBIN, URINE NEG (NEG); BLOOD, URINE MOD (NEG); GLUCOSE,URINE NEG (NEG); KETONE, URINE NEG (NEG); NITRITE,URINE NEG (NEG); URINE COLOR YELLOW (YELLW/STRAW); URINE LEUKOCYTE ESTERASE NEG (NEG)
[2017-12-29] VITALS (52 sets, daily range): BP systolic 117–145; BP diastolic 59–90; PULSE 95–123; RESP 16–17; TEMP 97.7–98.6
--- NOTE | 2017-12-29 03:42 | PD.OB.DELI ---
Weeks gestation: 38 Gest age assessed date: December 28, 2017 Gest age assessed time: 20:00 Pt started active labor?: Yes Active labor start date: December 28, 2017 Active labor start time: 20:00 Medical induction of labor?: No Artificial rupture of membrane: Yes Artificial ROM date: December 29, 2017 Artifical ROM time: 02:00 Anesthesia: Epidural Episiotomy: None Vaginal Delivery: Vacuum, Presentation: Occiput anterior Nuchal Cord: None Delayed cord clamping (45 sec): Yes Infant: Male Delivery date: December 29, 2017 Delivery time: 03:21 One Minute : 8 Five Minute : 9 Placenta: Spontaneous delivery, Intact, 3 vessel cord Laceration: Vaginal laceration, 1 deg Repair: Vicryl interrupted Estimated blood loss: 150 Additional Information The patient progressed to complete dilation. The vertex descended to +3 station and no further progress was achieved. I discussed with the patient the option of proceeding to repeat versus trial of operative delivery with the vacuum. After reviewing the risks benefits and alternatives she consented to trial of vacuum. The vacuum was attached to the flex point in with a single contraction the vertex delivered. The cup was removed and the shoulders were delivered by maternal effort without delay. The remainder the followed easily and the baby was passed to the maternal abdomen were delayed cord clamping was accomplished. There were no complications. Chauncey Rodriguez MD December 29, 2017 03:42
[2017-12-29] MEDS ORDERED: ZOLPIDEM TARTRATE 5 MG TAB PO PRN (03:45)
[2017-12-29] MEDS ORDERED: KETOROLAC TROMETHAMINE 60 MG/2 ML (IM) VIAL IM PRN (03:45)
[2017-12-29] MEDS ORDERED: WITCH HAZEL 50%/GLYCERIN 12.5% 40 PAD JAR TOPICAL PRN (03:45)
[2017-12-29] MEDS ORDERED: OXYTOCIN 30 UNITS-500ML PREMIX 500 ML IV SCH (03:45)
[2017-12-29] MEDS ORDERED: BENZOCAINE 20% TOPICAL SPRAY 60 ML CAN TOPICAL PRN (03:45)
[2017-12-29] MEDS ORDERED: SODIUM CHLORIDE 0.9% FLUSH 10 ML FLUSH IV FLUSH PRN (03:45)
[2017-12-29] MEDS ORDERED: ceFAZolin 2 GM/DEX PREMIX 50 ML IV ONE (03:45)
[2017-12-29] MEDS ORDERED: ONDANSETRON ODT 4 MG TAB PO PRN (03:45)
[2017-12-29] MEDS ORDERED: ALUMINUM/MAGNESIUM/SIMETH 30 ML CUP PO PRN (03:45)
[2017-12-29] MEDS: IBUPROFEN 800 MG TAB PO PRN ×2 (05:19→21:15)
[2017-12-29] MEDS ORDERED: medroxyPROGESTERone ACETATE SUSP 150 MG/ML SYRINGE IM ONE (08:15)
--- NOTE | 2017-12-29 08:15 | HHI.OB ---
Subjective Post Day: 0 Remarks Patient is a 37-year-old delivered at 38 weeks and 2 days. Patient is day 0 after vacuum-assisted vaginal delivery. Patient's pain is well- controlled. Patient reports eating and drinking without any nausea or vomiting. Patient reports minimal bleeding. Patient has not urinated, passed gas or bowel movements. Patient is walking without lower extremity pain or shortness of breath. Patient reports desire for contraception with Depo-Provera and formula- feeding. She complains of some reflux. (Damaso Leigh MD R2) Remarks Patient seen and evaluated with resident under direct supervision, agree with assessment and plan. (Chauncey Rodriguez MD) Objective Vitals/I&O Vital Signs Date Time Temp Pulse Resp B/P (MAP) Pulse Ox O2 Delivery O2 Flow Rate FiO2 12/29/17 04:45 108 145/82 (103) 12/29/17 04:31 113 117/64 (81) 12/29/17 04:20 107 139/83 (101) 12/29/17 03:49 97.7 17 12/29/17 03:30 112 144/77 (99) 12/29/17 03:20 109 12/29/17 03:15 114 12/29/17 03:15 105 /02/10 03:10 109 12/29/17 03:05 97 12/29/17 03:01 114 144/72 (96) 12/29/17 03:00 123 12/29/17 02:55 109 18 02:45 106 12/29/17 02:40 114 18 02:35 115 12/29/17 02:30 113 18 02:25 111 18 02:20 99 18 02:15 110 12/29/17 02:10 97 18 02:05 114 12/29/17 02:00 112 142/90 (107) 12/29/17 02:00 98.1 12/29/17 01:59 16 12/29/17 01:55 112 12/29/17 01:50 111 12/29/17 01:45 132/78 (96) 12/29/17 01:45 120 12/29/17 01:40 109 12/29/17 01:35 116 12/29/17 01:30 108 12/29/17 01:30 141/79 (99) 12/29/17 01:25 114 12/29/17 01:20 107 12/29/17 01:16 103 134/66 (88) 12/29/17 01:15 111 12/29/17 01:10 104 12/29/17 01:05 118 12/29/17 01:01 103 144/81 (102) 12/29/17 01:00 108 12/29/17 00:55 103 12/29/17 00:50 105 12/29/17 00:45 97 141/67 (91) 12/29/17 00:45 100 12/29/17 00:40 98 12/29/17 00:35 103 12/29/17 00:31 102 140/66 (90) 12/29/17 00:30 112 12/29/17 00:25 104 12/29/17 00:20 113 12/29/17 00:15 105 12/29/17 00:15 98 145/59 (87) 12/29/17 00:10 95 12/29/17 00:05 100 12/29/17 00:00 103 132/62 (85) 12/29/17 00:00 101 12/28/17 23:55 103 12/28/17 23:50 104 12/28/17 23:46 95 136/50 (78) 12/28/17 23:45 106 /01/10 23:30 93 12/28/17 23:30 90 140/72 (94) 12/28/17 23:25 94 12/28/17 23:20 106 12/28/17 23:15 96 5/18 23:10 118 12/28/17 23:05 103 12/28/17 23:00 101 12/28/17 23:00 129/67 (87) 12/28/17 22:55 97 5/01/10 22:53 98.1 15 5 22:50 93 5/18 22:45 100 /18 22:40 97 /18 22:35 105 5/18 22:30 108 5/01/10 22:30 106 5/18 22:20 103 5/18 22:15 92 5/18 22:10 95 12/28/17 22:05 99 12/28/17 22:00 97 12/28/17 22:00 96 132/67 (88) 12/28/17 21:50 104 12/28/17 21:46 114 146/78 (100) 12/28/17 21:45 109 12/28/17 21:40 104 12/28/17 21:35 98 97 12/28/17 21:30 97 12/28/17 21:30 97 134/62 (86) 12/28/17 21:30 97 12/28/17 21:25 96 12/28/17 21:25 97 144/67 (92) 12/28/17 21:25 101 98 12/28/17 21:20 93 131/73 (92) 12/28/17 21:20 99 12/28/17 21:16 102 143/60 (87) 12/28/17 21:15 103 12/28/17 21:15 99 12/28/17 21:11 113 150/74 (99) 12/28/17 21:10 122 12/28/17 21:06 117 180/80 (113) 12/28/17 21:05 106 12/28/17 21:01 108 12/28/17 21:00 98 12/28/17 21:00 105 12/28/17 21:00 100 12/28/17 21:00 163/103 (123) 12/28/17 20:55 102 12/28/17 20:50 108 12/28/17 20:45 94 12/28/17 20:40 97 12/28/17 20:35 85 12/28/17 20:30 102 12/28/17 20:25 112 12/28/17 20:15 111 12/28/17 20:10 116 12/28/17 20:05 113 12/28/17 20:00 117 12/28/17 19:55 111 12/28/17 19:50 113 12/28/17 19:45 112 Objective Remarks GENERAL: Well-nourished, well-developed patient. CARDIOVASCULAR: Regular rate and rhythm without murmurs, gallops, or rubs. RESPIRATORY: Breath sounds equal bilaterally. No accessory muscle use. ABDOMEN/GI: Abdomen soft, non-tender. Fundus: Firm, non-tender at umbilicus. GENITOURINARY: Light to moderate bleeding. EXTREMITIES: No cyanosis or edema, non-tender, without signs of DVT. Medications and IVs Current Medications Medications (Trade) Dose Ordered Sig/Olman Route Start Time Stop Time Status Last Admin ([facility] Information) No systemic narcotics to be given except... UNSCH PRN .XX 12/28/17 21:30 12/29/17 21:29 ([facility] Information) DO NOT ADMINISTER ANY ANTICOAGUL... UNSCH PRN .XX 12/28/17 21:30 12/29/17 21:29 (NS Flush) 2 ml BID IV FLUSH 12/29/17 09:00 (NS Flush) 2 ml UNSCH PRN IV FLUSH 12/29/17 03:45 Oxytocin 500 ml @ 100 mls/hr CONTINUOUS IV 12/29/17 03:45 12/29/17 08:44 (Tylenol) 650 mg Q4H PRN PO 12/29/17 03:45 (Motrin) 800 mg Q8H PRN PO 12/29/17 03:45 12/29/17 05:19 (Americaine 20% Top Spr) 1 spray Q4H PRN TOPICAL 12/29/17 03:45 (Tucks Pads) 1 applic QID PRN TOPICAL 12/29/17 03:45 (Bernadette-Colace) 2 tab Q12H PRN PO 12/29/17 03:45 (Ambien) 5 mg HS PRN PO 12/29/17 03:45 (M-M-R Ii Inj) 0.5 ml ONCE ONCE SQ 12/29/17 16:00 12/29/17 16:01 (Boostrix Inj) 0.5 ml ONCE ONCE IM 12/29/17 16:00 12/29/17 16:01 (Mag-Al Plus Susp Liq) 15 ml Q8H PRN PO 12/29/17 03:45 (Zofran Odt) 4 mg Q6H PRN PO 12/29/17 03:45 (Toradol Inj) 30 mg Q6H PRN IM 12/29/17 03:45 01/03/18 03:44 (Damaso Leigh MD R2) Assessment/Plan Problem List: (1) Vacuum extraction, delivered, current hospitalization ICD Codes: O66.5 - Attempted application of vacuum extractor and forceps Assessment and Plan Patient with h/o drug abuse is a 37-year-old delivered at 38 weeks and 2 days. Patient is day 0 after vacuum-assisted vaginal delivery. Patient was counseled to do 6 weeks of pelvic rest. Patient was counseled to follow up in 6 weeks. Patient requested follow-up and contraception. 1. s/p vacuum-assisted vaginal delivery --AF VSS --Continue routine care --Motrin and Percocet when necessary for pain --Encourage OOB --Pelvic rest for 6 weeks will need follow-up appointment at that time. --Contraception: Depo-Provera prior to discharge --Anticipate discharge tomorrow or the next day 2. Acid reflux --Famotidine 20 mg p.o. twice daily 3. h/o drug abuse -patient reported that she has been clean for the past 4 years but was found to have UDS positive for amphetamines w/d/w Dr. Rodriguez Discharge Planning --Anticipate discharge tomorrow or the next day (Damaso Leigh MD R2) Damaso Leigh MD R2 December 29, 2017 08:15 Chauncey Rodriguez MD December 29, 2017 09:37
[2017-12-29] MEDS ORDERED: SODIUM CHLORIDE 0.9% FLUSH 10 ML FLUSH IV FLUSH SCH (09:00)
[2017-12-29] MEDS: DOCUSATE SODIUM 50 MG/SENNA 8.6 MG TAB PO PRN ×2 (09:53→21:15)
[2017-12-29] MEDS: FAMOTIDINE 20 MG TAB PO SCH ×2 (09:53→21:09)
[2017-12-29] MEDS ORDERED: DIPHTH/TETANUS/ACEL PERTUSSIS (BOOSTER) 0.5 ML VIAL/PFS IM ONE (16:00)
[2017-12-29] MEDS ORDERED: MEASLES, MUMPS, RUBELLA VACCINE 0.5 ML VIAL SQ ONE (16:00)
[2017-12-29] MEDS: ACETAMINOPHEN 325 MG TAB PO PRN (21:16)
[2017-12-30 07:54] VITALS: PULSE 93; RESP 20; TEMP 97.9
[2017-12-30 07:55] VITALS: BP 116/66
--- NOTE | 2017-12-30 08:28 | HHI.OB ---
Subjective Remarks Patient is a 37-year-old delivered at 38 weeks and 2 days. Patient is day 1 after vacuum-assisted vaginal delivery. Patient's pain is well- controlled. Patient reports eating and drinking without any nausea or vomiting. Patient reports minimal bleeding. Patient has passed gas, but no bowel movements. Patient is walking without lower extremity pain or shortness of breath. Patient reports desire for contraception with Depo-Provera and formula- feeding. Objective Vitals/I&O Vital Signs Date Time Temp Pulse Resp B/P (MAP) Pulse Ox O2 Delivery O2 Flow Rate FiO2 12/30/17 07:55 116/66 (83) 12/30/17 07:54 97.9 93 20 12/29/17 21:10 98.6 111 17 130/83 (99) 12/29/17 08:49 98.5 115 16 12/29/17 08:49 142/75 (97) Objective Remarks GENERAL: Well-nourished, well-developed patient. CARDIOVASCULAR: Regular rate and rhythm without murmurs, gallops, or rubs. RESPIRATORY: Breath sounds equal bilaterally. No accessory muscle use. ABDOMEN/GI: Abdomen soft, non-tender. Fundus: Firm, non-tender at umbilicus. GENITOURINARY: Light to moderate bleeding. EXTREMITIES: No cyanosis or edema, non-tender, without signs of DVT. Medications and IVs Current Medications Medications (Trade) Dose Ordered Sig/Olman Route Start Time Stop Time Status Last Admin (NS Flush) 2 ml BID IV FLUSH 12/29/17 09:00 (NS Flush) 2 ml UNSCH PRN IV FLUSH 12/29/17 03:45 (Tylenol) 650 mg Q4H PRN PO 12/29/17 03:45 12/29/17 21:16 (Motrin) 800 mg Q8H PRN PO 12/29/17 03:45 12/29/17 21:15 (Americaine 20% Top Spr) 1 spray Q4H PRN TOPICAL 12/29/17 03:45 (Tucks Pads) 1 applic QID PRN TOPICAL 12/29/17 03:45 (Bernadette-Colace) 2 tab Q12H PRN PO 12/29/17 03:45 12/29/17 21:15 (Ambien) 5 mg HS PRN PO 12/29/17 03:45 (Mag-Al Plus Susp Liq) 15 ml Q8H PRN PO 12/29/17 03:45 (Zofran Odt) 4 mg Q6H PRN PO 12/29/17 03:45 (Toradol Inj) 30 mg Q6H PRN IM 12/29/17 03:45 01/03/18 03:44 (Pepcid) 20 mg BID PO 12/29/17 09:00 12/29/17 21:09 Assessment/Plan Problem List: (1) Vacuum extraction, delivered, current hospitalization ICD Codes: O66.5 - Attempted application of vacuum extractor and forceps Assessment and Plan Patient with h/o drug abuse is a 37-year-old delivered at 38 weeks and 2 days. Patient is day 1 after vacuum-assisted vaginal delivery. Patient was counseled to do 6 weeks of pelvic rest. Patient was counseled to follow up in 6 weeks. Patient requested follow-up and contraception. 1. s/p vacuum-assisted vaginal delivery --AF VSS --Continue routine care --Motrin when necessary for pain --Encourage OOB --Pelvic rest for 6 weeks will need follow-up appointment at that time. --Contraception: Depo-Provera administered --Anticipate discharge today or tomorrow 2. Acid reflux --Famotidine 20 mg p.o. twice daily 3. h/o drug abuse -patient reported that she has been clean for the past 4 years but was found to have UDS positive for amphetamines w/d/w Dr. [place] Discharge Planning --Anticipate discharge tomorrow or the next day Claudia Toledo MD R1 December 30, 2017 08:28
[2017-12-30] MEDS: FAMOTIDINE 20 MG TAB PO SCH (09:00)
[2017-12-30] MEDS: ACETAMINOPHEN 325 MG TAB PO PRN (12:20)
[2017-12-30] MEDS: IBUPROFEN 800 MG TAB PO PRN (12:20)
[2017-12-30] MEDS ORDERED: PERI PO (14:31)
[2017-12-30] MEDS ORDERED: IBUP1TAB7 PO (14:31)
--- NOTE | 2017-12-30 14:32 | HHI.DCPOC ---
Discharge Care Plan Diagnosis: (1) Normal vaginal delivery (2) History of substance abuse (3) No care in current Report Symptoms to Your Doctor -Temperature above 100.5 degrees -Redness, of incision or excessive or foul smelling drainage -Unusual pain or calf pain -Increased vaginal bleeding -Painful or difficulty urinating -Feelings of extreme sadness or anxiety after 2 weeks Goals to Promote Your Health * To prevent worsening of your condition and complications * To maintain your health at the optimal level Directions to Meet Your Goals Take your medications as prescribed Follow your dietary instruction Follow activity as directed Ensure plenty of rest for recovery Drink fluids for hydration Keep your appointments as scheduled Take your immunizations and boosters as scheduled If your symptoms worsen call your PCP, if no PCP go to Urgent Care Center or Emergency Room Smoking is Dangerous to Your Health. Avoid second hand smoke Call the 24-hour crisis hotline for domestic abuse at Claudia Toledo MD R1 December 30, 2017 14:32
== END 2017-12-30 17:57 | disposition home or self-care (01) | DRG 775 ==
LOC: HOBED 19:35 → H2EB 20:10 → H1EA 12-29 06:16
PROVIDERS: ADMIT Obstetrics & Gynecology; ATTEND Obstetrics & Gynecology
PROC: 00HU33Z Insertion of Infusion Device into Spinal Canal, Percutaneous Approach (ICD-10-PCS; 2017-12-28)
PROC: 3E0R3BZ Introduction of Anesthetic Agent into Spinal Canal, Percutaneous Approach (ICD-10-PCS; 2017-12-28)
PROC: 10D07Z6 Extraction of Products of Conception, Vacuum, Via Natural or Artificial Opening (ICD-10-PCS; principal; 2017-12-29)
PROC: 0HQ9XZZ Repair Perineum Skin, External Approach (ICD-10-PCS; 2017-12-29)
DX: O70.0 First degree perineal laceration during delivery (principal); O99.324 Drug use complicating childbirth; K21.9 Gastro-esophageal reflux disease without esophagitis; F11.10 Opioid abuse, uncomplicated; F15.10 Other stimulant abuse, uncomplicated; B19.20 Unspecified viral hepatitis C without hepatic coma; O99.334 Smoking (tobacco) complicating childbirth; Z37.0 Single live birth; Z3A.38 38 weeks gestation of pregnancy; Z23 Encounter for immunization
CPT/HCPCS: 36415; 59025; 80074; 80307; 81001; 85025; 86592; 86703; 86850; 86900; 86901; 87081; 87150; 87491; 87591; 90715; G0481; J0690; J1050; J2590; J7120